=== PATIENT | male | born 1940 | race Caucasian/White ===

== ENCOUNTER 2017-11-11 09:02 | Inpatient (IN) | payer OTHER ==
[~2017-11-11] VITALS: Ht 188 cm; Wt 88.9 kg
--- NOTE | ~2017-11-11 | EKG ---
[place] [address] [address] [facility] [address] [place] [address] ELECTROCARDIOGRAM REPORT Name: CAROL GONZALEZ Room #: [facility]#: [id number] Admission: 11/11/17 Attend Phys: Discharge: Date of : 36 Report #: [id number] THIS REPORT FOR: //name// [facility] ED Test Date: 2017-11-11 Test Time: 10:10:30 Pat Name: CAROL GONZALEZ Department: Room: Gender: M Foundry Technician: Judy CALLAHAN : 1940 Requested By: Lilia Phelps Order Number: [id number] MD: Abran Baron Measurements Intervals [place] Rate: 54 P: 152 [place]: 198 QRS: -18 QRSD: 93 T: 59 QT: 451 QTc: 428 Interpretive Statements Incomplete EKG Sinus or ectopic atrial rhythm Atrial premature complexes Nonspecific T abnormalities, lateral leads Compared to ECG 06/02/2014 17:19:16 T wave abnormality is now present Recommend repeat EKG with all of leads Electronically Signed On 11-11-2017 10:26:16 CDT by Abran Baron [email or web address] <ELECTRONICALLY SIGNED> By: Abran Baron MD, FACC 11/11/17 1026 1010 1010 Abran Baron MD, [facility] /EPI
[~2017-11-11 09:02] MED LIST: ANTIVERT25 MG PO; ARICEPT 5 MG TAB5 MG PO; ASPIR 8181 MG PO; ATIVAN0.5 MG PO; AVODART0.5 MG PO; CELEXA20 MG PO; CRESTOR40 MG PO; IRON325 MG PO; MIDODRINE HCL 55 M1 PO; PEPCID20 MG PO; PROTONIX40 M1; SEROQUEL 25 MG25 M1 PO; ULTRAM 50MG TAB50 MG PO
[2017-11-11 09:05] VITALS: BP 159/57
[2017-11-11 09:25] LABS: ABSOLUTE NEUTROPHILS 4.6 thou/uL (1.4-8.2); BASOPHILS 0.7 % (0.0-2.0); EOSINOPHILS 1.8 % (0.0-3.0); HEMATOCRIT 31.8 % (42.0-52.0); HEMOGLOBIN 10.7 gm/dL (14.0-18.0); LYMPHOCYTES 11.7 % (24.0-44.0); MCH 27.3 pg (26.0-34.0); MCHC 33.6 g/dL (28.0-37.0); MCV 81.1 fL (80.0-100.0); MONOCYTES 6.6 % (1.0-8.0); PLATELET COUNT 134 thou/uL (150-400); POLYS 79.2 % (36.0-66.0); RBC 3.92 mil/uL (4.50-6.00); WBC 5.8 thou/uL (4.0-11.0)
[2017-11-11 09:33] LABS: CALCIUM 9.4 mg/dL (8.5-10.1); POTASSIUM 3.2 mmol/L (3.5-5.1)
[2017-11-11 09:39] LABS: ALBUMIN 2.9 g/dL (3.4-5.0); DIRECT BILIRUBIN 0.2 mg/dL (<0.1-0.3); TOTAL BILIRUBIN 0.9 mg/dL (<0.1-1.0); TOTAL PROTEIN 6.7 g/dL (6.4-8.2)
[2017-11-11] MEDS ORDERED: LEXAPRO 10 MG T10 M1 PO (10:47)
[2017-11-11] MEDS ORDERED: FLORINEF ACETA0.1 MG PO (10:47)
[2017-11-11] MEDS ORDERED: TYLENOL325 MG PO (10:48)
[2017-11-11] MEDS ORDERED: VITAMIN B-1100 M1 PO (10:48)
[2017-11-11] MEDS ORDERED: SENNA8.6 MG PO (10:48)
[2017-11-11] MEDS ORDERED: VITAMIN D2000 UNIT PO (10:49)
[2017-11-11] MEDS ORDERED: VITAMIN B-12500 MCG PO (10:49)
[2017-11-11 10:50] VITALS: BP 168/71
[2017-11-11 11:27] VITALS: BP 168/71
[2017-11-11 12:06] VITALS: BP 157/69
[2017-11-11 15:06] VITALS: BP 149/75
[2017-11-11 20:20] VITALS: BP 119/51
[2017-11-12 05:53] VITALS: BP 129/50
[2017-11-12 06:28] LABS: HEMATOCRIT 32.6 % (42.0-52.0); HEMOGLOBIN 10.8 gm/dL (14.0-18.0); MCH 26.9 pg (26.0-34.0); MCHC 33.2 g/dL (28.0-37.0); MCV 81.2 fL (80.0-100.0); RBC 4.01 mil/uL (4.50-6.00); RDW 14.7 % (10.5-14.5); WBC 4.7 thou/uL (4.0-11.0)
[2017-11-12 06:38] LABS: CALCIUM 9.6 mg/dL (8.5-10.1); POTASSIUM 3.1 mmol/L (3.5-5.1)
[2017-11-12 08:00] VITALS: BP 140/66
[2017-11-12 16:00] VITALS: BP 99/54
[2017-11-12 19:48] VITALS: BP 119/51
[2017-11-13 04:13] VITALS: BP 142/61
[2017-11-13 08:00] VITALS: BP 124/63
[2017-11-13 16:06] VITALS: BP 98/53
[2017-11-13 20:00] VITALS: BP 93/51
[2017-11-13 20:04] VITALS: BP 116/61
[2017-11-14 04:04] VITALS: BP 137/66
[2017-11-14 05:27] LABS: ABSOLUTE NEUTROPHILS 3.4 thou/uL (1.4-8.2); BASOPHILS 0.8 % (0.0-2.0); EOSINOPHILS 3.9 % (0.0-3.0); HEMATOCRIT 31.6 % (42.0-52.0); HEMOGLOBIN 10.6 gm/dL (14.0-18.0); LYMPHOCYTES 23.7 % (24.0-44.0); MCHC 33.4 g/dL (28.0-37.0); MCV 80.8 fL (80.0-100.0); MONOCYTES 8.5 % (1.0-8.0); PLATELET COUNT 151 thou/uL (150-400); POLYS 63.1 % (36.0-66.0); RBC 3.92 mil/uL (4.50-6.00); RDW 14.8 % (10.5-14.5); WBC 5.3 thou/uL (4.0-11.0)
[2017-11-14 05:52] LABS: CALCIUM 9.1 mg/dL (8.5-10.1); CREATININE 1.1 mg/dL (0.7-1.3); POTASSIUM 3.1 mmol/L (3.5-5.1)
[2017-11-14 08:00] VITALS: BP 142/60
== END 2017-11-14 14:05 | DRG 312 ==
LOC: ER 09:02 → 4W 10:17 → EROBS 10:17 → 4W 11:32
PROVIDERS: Emergency Medicine; Family Medicine; Hospitalist
DX: I95.1 Orthostatic hypotension (principal); R60.9 Edema, unspecified; K21.9 Gastro-esophageal reflux disease without esophagitis; I48.91 Unspecified atrial fibrillation; F03.90 Unspecified dementia, unspecified severity, without behavioral disturbance, psychotic disturbance, mood disturbance, and anxiety; E87.6 Hypokalemia; D64.9 Anemia, unspecified; I10 Essential (primary) hypertension; T50.995A Adverse effect of other drugs, medicaments and biological substances, initial encounter; M62.84 Sarcopenia; Z79.899 Other long term (current) drug therapy; Z88.0 Allergy status to penicillin; Y92.89 Other specified places as the place of occurrence of the external cause; Z79.82 Long term (current) use of aspirin; Z88.2 Allergy status to sulfonamides; Z88.8 Allergy status to other drugs, medicaments and biological substances
CPT/HCPCS: 10045

== ENCOUNTER 2017-11-30 21:03 | Emergency (ER) | payer OTHER ==
[~2017-11-30] VITALS: Ht 188 cm; Wt 68.0 kg
[~2017-11-30 21:03] MED LIST changes: +FLORINEF ACETA0.1 MG PO; +LEXAPRO 10 MG T10 M1 PO; +SENNA8.6 MG PO; +TYLENOL325 MG PO; +VITAMIN B-1100 M1 PO; +VITAMIN B-12500 MCG PO; +VITAMIN D2000 UNIT PO
== END 2017-11-30 23:50 | disposition home or self-care (01) ==
LOC: ER 21:03
DX: S09.90XA Unspecified injury of head, initial encounter (principal); K21.9 Gastro-esophageal reflux disease without esophagitis; I10 Essential (primary) hypertension; I11.0 Hypertensive heart disease with heart failure; I50.9 Heart failure, unspecified; N40.0 Benign prostatic hyperplasia without lower urinary tract symptoms; F32.9 Major depressive disorder, single episode, unspecified; Z88.0 Allergy status to penicillin; Z88.2 Allergy status to sulfonamides; W07.XXXA Fall from chair, initial encounter; Y93.89 Activity, other specified; Y92.89 Other specified places as the place of occurrence of the external cause; Y99.8 Other external cause status

== ENCOUNTER 2018-01-24 14:23 | Inpatient (IN) | payer OTHER ==
[~2018-01-24] VITALS: Ht 188 cm; Wt 81.7 kg
--- NOTE | ~2018-01-24 | EKG ---
[place] [address] [place] [address] ELECTROCARDIOGRAM REPORT Name: CAROL GONZALEZ Room #: 421-P ADM IN M.R.#: [id number] Admission: 01/24/18 Attend Phys: Michoacano Hernandez Discharge: Date of : 36 Report #: [id number] THIS REPORT FOR: //name// [facility] ED Test Date: 2018-01-24 Test Time: 14:28:02 Pat Name: CAROL GONZALEZ Department: Room: [facility] Gender: M Full Service Supervisor: KAIA : 1940 Requested By: Lilia Phelps Order Number: [id number] MD: Abran Baron Measurements Intervals [place] Rate: 53 P: 49 [place]: 151 QRS: -2 QRSD: 94 T: 41 QT: 457 QTc: 430 Interpretive Statements Sinus bradycardia Atrial premature complex Compared to ECG 11/11/2017 10:10:30 Prior ECG was incomplete. No obvious differences on leads that are present Electronically Signed On 01-25-2018 8:26:49 CDT by Abran Baron [email or web address] <ELECTRONICALLY SIGNED> By: Abran Barno MD, [facility] 01/25/18 0826 1428 1428 Abran Baron MD, [facility] /EPI
[2018-01-24 14:45] LABS: ABSOLUTE NEUTROPHILS 7.1 thou/uL (1.4-8.2); BASOPHILS 0.5 % (0.0-2.0); EOSINOPHILS 0.1 % (0.0-3.0); HEMATOCRIT 36.8 % (42.0-52.0); HEMOGLOBIN 12.1 gm/dL (14.0-18.0); LYMPHOCYTES 9.4 % (24.0-44.0); MCH 27.3 pg (26.0-34.0); MCV 82.7 fL (80.0-100.0); MONOCYTES 6.4 % (1.0-8.0); PLATELET COUNT 177 thou/uL (150-400); POLYS 83.6 % (36.0-66.0); RBC 4.44 mil/uL (4.50-6.00); RDW 17.7 % (10.5-14.5); WBC 8.5 thou/uL (4.0-11.0)
[2018-01-24 15:02] LABS: URINE BILIRUBIN NEGATIVE (Negative); URINE BLOOD NEGATIVE (Negative); URINE CLARITY CLEAR; URINE COLOR YELLOW; URINE GLUCOSE-RANDOM* NEGATIVE (Negative); URINE KETONES NEGATIVE (Negative); URINE LEUKOCYTES NEGATIVE (Negative); URINE NITRITE NEGATIVE (Negative); URINE PROTEIN (DIPSTICK) NEGATIVE (Negative); URINE UROBILINOGEN 0.2 E.U./dl (0.2-1.0)
[2018-01-24 15:46] LABS: CALCIUM 9.6 mg/dL (8.5-10.1); CREATININE 2.1 mg/dL (0.7-1.3); POTASSIUM 4.5 mmol/L (3.5-5.1)
[2018-01-24 16:27] VITALS: BP 125/47
[2018-01-24 17:26] VITALS: BP 123/79
[2018-01-24 17:50] VITALS: BP 106/65
[2018-01-24 20:00] VITALS: BP 119/58
[2018-01-25 00:30] VITALS: BP 139/93
[2018-01-25 04:12] VITALS: BP 138/57
[2018-01-25 07:14] LABS: CALCIUM 8.9 mg/dL (8.5-10.1); CREATININE 2.2 mg/dL (0.7-1.3); POTASSIUM 4.2 mmol/L (3.5-5.1)
[2018-01-25 16:10] VITALS: BP 151/65
[2018-01-25 19:41] VITALS: BP 124/55
[2018-01-26 04:02] LABS: ALBUMIN 2.4 g/dL (3.4-5.0); CALCIUM 8.4 mg/dL (8.5-10.1); PHOSPHORUS 3.4 mg/dL (2.5-4.9); POTASSIUM 3.9 mmol/L (3.5-5.1)
[2018-01-26 04:09] LABS: CREATININE 0.9 mg/dL (0.7-1.3)
[2018-01-26 04:52] VITALS: BP 140/49
[2018-01-26 07:20] VITALS: BP 154/65
== END 2018-01-26 13:14 | DRG 70 ==
LOC: ER 14:23 → EROBS 16:03 → 4E 16:03
PROVIDERS: Emergency Medicine; Hospitalist
DX: G93.41 Metabolic encephalopathy (principal); N17.0 Acute kidney failure with tubular necrosis; G47.00 Insomnia, unspecified; F03.90 Unspecified dementia, unspecified severity, without behavioral disturbance, psychotic disturbance, mood disturbance, and anxiety; I48.91 Unspecified atrial fibrillation; K21.9 Gastro-esophageal reflux disease without esophagitis; I11.0 Hypertensive heart disease with heart failure; I50.9 Heart failure, unspecified; F32.9 Major depressive disorder, single episode, unspecified; N40.0 Benign prostatic hyperplasia without lower urinary tract symptoms; I95.1 Orthostatic hypotension; Z87.81 Personal history of (healed) traumatic fracture; Z87.828 Personal history of other (healed) physical injury and trauma; Z88.0 Allergy status to penicillin; Z88.2 Allergy status to sulfonamides; Z88.8 Allergy status to other drugs, medicaments and biological substances; Z79.82 Long term (current) use of aspirin; Z79.899 Other long term (current) drug therapy
CPT/HCPCS: 10183

== ENCOUNTER 2018-02-04 16:35 | Inpatient (IN) | payer OTHER ==
[~2018-02-04] VITALS: Ht 185.4 cm; Wt 74.8 kg
--- NOTE | ~2018-02-04 | HC ---
[facility] [place] [address] CONSULTATION Name: CAROL GONZALEZ Room #: 353-P ADM IN M.R.#: [id number] Admission: 02/04/18 Attend Phys: Aldo Sharif MD Discharge: Date of : 36 Report #: [id number] THIS REPORT FOR: //name// CC: Aldo Dumont DATE OF SERVICE: 02/05/2018 REASON FOR CONSULTATION: Acute kidney injury. REASON FOR PRESENTATION: Altered mental status. HISTORY OF PRESENT ILLNESS: The patient is not able to provide me with the history. He presented yesterday. He is nonverbal and noncommunicative. He is able to ambulate with a walker in his nursing facility. For the past 3 days, he had been in bed, nonverbal and not following commands. He carries a diagnosis of dementia. He was in the hospital in early part of January. When he presented yesterday, he was found to have hypernatremia with an acute kidney injury and a creatinine of 7.3. Urology had evaluated the patient because of urinary retention and a Roman catheter was placed accordingly. His creatinine was 7.3 yesterday and the creatinine is down to 4.2. I am being consulted to manage his acute kidney injury and hypernatremia. REVIEW OF SYSTEMS: Unobtainable given the patient's mental status. PAST MEDICAL HISTORY: 1. Obtained from the medical chart as the patient is nonverbal. 2. Dementia. 3. Hypertension. 4. Anemia. SOCIAL HISTORY: He lives in a nursing facility. No reported drug or alcohol abuse. MEDICATIONS: 1. Midodrine. 2. Aspirin. 3. Pantoprazole. 4. Florinef. 5. Thiamine. ALLERGIES: LISTED PENICILLIN AND SULFA. PHYSICAL EXAMINATION: GENERAL: He is disoriented to place and person. VITAL SIGNS: Temperature 36.9, pulse 73, blood pressure 129/80. [facility] [address] [place] [address] CONSULTATION Name: CAROL GONZALEZ Room #: 353-P [facility] IN .R.#: [id number] Admission: 02/04/18 Attend Phys: Aldo Sharif MD Discharge: Date of : 38 Report #: [id number] HEENT: Mucous membrane is extremely dry. HEAD AND NECK: No jugular venous distention, no bruit, no thyromegaly. CHEST: Clear to auscultation bilaterally. CARDIOVASCULAR: Regular with no rub detected. ABDOMEN: Soft, nontender with no hepatosplenomegaly. EXTREMITIES: Lower extremities, no edema. LABORATORY DATA: Laboratory values reviewed. White blood cell count 10.2, hemoglobin 11.1, platelet 117. Chemistry revealed sodium of 155, BUN of 88, creatinine of 4.2. Magnesium was elevated at 2.7. Head CT was negative for any acute abnormality. Ultrasound was negative for hydronephrosis. ASSESSMENT, IMPRESSION, PLAN: 1. Acute kidney injury. 2. Urinary retention. 3. Hypernatremia. 4. Dementia. 5. This is typical hypernatremia due to lack of access to free water. 6. We will discontinue current IV fluid and switch to p.o. D5W. 7. Continue with the Roman catheter. 8. Continue to monitor his renal function. I expect his renal function to continue to improve back to his baseline. By: [id number] Wayne Aguilar MD /nt
--- NOTE | ~2018-02-04 | HC ---
[facility] [place] [address] CONSULTATION Name: CAROL GONZALEZ Room #: 353-P ADM IN M.R.#: [id number] Admission: 02/04/18 Attend Phys: Aldo Sharif MD Discharge: Date of : 38 Report #: [id number] THIS REPORT FOR: //name// CC: Aldo Dumont CHIEF COMPLAINT: Urinary retention. HISTORY OF PRESENT ILLNESS: The patient is a 77-year-old gentleman who is being seen today at the request of Dr. Sharif for evaluation and management of urinary retention. Specifically, he was transferred from halfway facility with altered mental status. He was known to have an elevated creatinine. When a catheter was placed, 2500 mL of urine was obtained in the Emergency Room. ALLERGIES: PENICILLIN, SULFA, FLOMAX. MEDICATIONS: ProAmatine, Protonix, aspirin, Pepcid, Florinef, Lexapro, senna, Tylenol, vitamin B1, Vitamin B12, vitamin D3. ILLNESSES: Include dementia, ischemic heart disease, atrial fibrillation, psychosis, GERD, hypertension, congestive heart failure, syncope, dysphagia, depression, BPH. REVIEW OF SYSTEMS: Limited due to his condition. PHYSICAL EXAMINATION: GENERAL: He really does not respond to questions and almost appears catatonic. VITAL SIGNS: Temperature is 36.9, pulse 73, respirations 18, blood pressure 129/80. ABDOMEN: Soft without masses. GENITOURINARY: There is no acute genital pathology. He has a Roman, draining clear urine. LABORATORY DATA: White count 10.2 thousand, hemoglobin 11.1, hematocrit 34.0, platelets 117,000. Sodium 155, potassium 3.8, chloride 119, CO2 of 26, BUN 88, creatinine 4.2, was 7.3 on admission. Urine is clear, yellow, specific gravity is 1.015, pH 6.0, blood, ketones, nitrites, bilirubin all negative, leukocyte esterase negative. IMPRESSION: Urinary retention, very profound. [facility] [address] [place] [address] CONSULTATION Name: ELIF GONZALEZMIE Room #: 353-P ADM IN M.R.#: [id number] Admission: 02/04/18 Attend Phys: Aldo Sharif MD Discharge: Date of : 38 Report #: [id number] PLAN: I would leave the Roman in 3-4 weeks given the degree of distention and we will check a renal ultrasound and assist with management. <ELECTRONICALLY SIGNED> By: Vincent Jeffery MD 02/06/18 1028 0746 0008 Vincent Jeffery MD /nt
[2018-02-04 16:36] VITALS: BP 117/74
[2018-02-04 17:19] LABS: URINE BILIRUBIN NEGATIVE (Negative); URINE BLOOD NEGATIVE (Negative); URINE CLARITY CLEAR; URINE COLOR YELLOW; URINE GLUCOSE-RANDOM* NEGATIVE (Negative); URINE KETONES NEGATIVE (Negative); URINE LEUKOCYTES-REFLEX NEGATIVE (Negative); URINE NITRITE-REFLEX NEGATIVE (Negative); URINE PROTEIN (DIPSTICK) NEGATIVE (Negative); URINE SPECIFIC GRAVITY 1.015 (1.005-1.035); URINE UROBILINOGEN 0.2 E.U./dl (0.2-1.0)
[2018-02-04 17:19] LABS: ABSOLUTE NEUTROPHILS 9.9 thou/uL (1.4-8.2); BASOPHILS 0.4 % (0.0-2.0); HEMATOCRIT 34.1 % (42.0-52.0); HEMOGLOBIN 11.1 gm/dL (14.0-18.0); LYMPHOCYTES 7.5 % (24.0-44.0); MCH 26.9 pg (26.0-34.0); MCHC 32.5 g/dL (28.0-37.0); MCV 82.9 fL (80.0-100.0); MONOCYTES 6.8 % (1.0-8.0); PLATELET COUNT 128 thou/uL (150-400); POLYS 85.3 % (36.0-66.0); RBC 4.11 mil/uL (4.50-6.00); RDW 16.9 % (10.5-14.5); WBC 11.7 thou/uL (4.0-11.0)
[2018-02-04 17:31] LABS: CALCIUM 9.2 mg/dL (8.5-10.1); CREATININE 7.3 mg/dL (0.7-1.3); POTASSIUM 4.5 mmol/L (3.5-5.1)
[2018-02-04 18:29] VITALS: BP 133/59
[2018-02-04 19:30] VITALS: BP 139/66
[2018-02-04 19:53] VITALS: BP 147/74
[2018-02-05 00:37] VITALS: BP 125/71
[2018-02-05 04:29] VITALS: BP 117/59
[2018-02-05 04:40] LABS: ABSOLUTE NEUTROPHILS 8.5 thou/uL (1.4-8.2); BASOPHILS 0.4 % (0.0-2.0); EOSINOPHILS 0.1 % (0.0-3.0); HEMOGLOBIN 11.1 gm/dL (14.0-18.0); LYMPHOCYTES 8.5 % (24.0-44.0); MCHC 32.5 g/dL (28.0-37.0); MCV 82.9 fL (80.0-100.0); PLATELET COUNT 117 thou/uL (150-400); RDW 16.9 % (10.5-14.5); WBC 10.2 thou/uL (4.0-11.0)
[2018-02-05 05:07] LABS: ALBUMIN 2.5 g/dL (3.4-5.0); CALCIUM 9.1 mg/dL (8.5-10.1); MAGNESIUM 2.7 mg/dL (1.8-2.4); POTASSIUM 3.8 mmol/L (3.5-5.1); TOTAL BILIRUBIN 0.6 mg/dL (<0.1-1.0); TOTAL PROTEIN 6.6 g/dL (6.4-8.2)
[2018-02-05 05:19] LABS: CREATININE 4.2 mg/dL (0.7-1.3)
[2018-02-05 07:34] VITALS: BP 129/80
[2018-02-05 11:34] VITALS: BP 121/70
[2018-02-05 15:28] VITALS: BP 141/64
[2018-02-05 19:10] VITALS: BP 115/58
[2018-02-06 03:50] VITALS: BP 107/65
[2018-02-06 07:27] LABS: ALBUMIN 2.3 g/dL (3.4-5.0); CALCIUM 9.2 mg/dL (8.5-10.1); PHOSPHORUS 2.7 mg/dL (2.5-4.9); POTASSIUM 3.5 mmol/L (3.5-5.1)
[2018-02-06 07:46] LABS: CREATININE 1.9 mg/dL (0.7-1.3)
[2018-02-06 08:13] VITALS: BP 129/71
[2018-02-06 13:04] VITALS: BP 132/82
[2018-02-06 17:28] VITALS: BP 131/87
[2018-02-06 19:25] VITALS: BP 125/55
[2018-02-07 04:30] VITALS: BP 110/61
[2018-02-07 08:38] VITALS: BP 122/68
[2018-02-07 08:48] LABS: HEMATOCRIT 30.1 % (42.0-52.0); HEMOGLOBIN 9.9 gm/dL (14.0-18.0); MCH 27.2 pg (26.0-34.0); MCHC 33.1 g/dL (28.0-37.0); MCV 82.4 fL (80.0-100.0); RBC 3.65 mil/uL (4.50-6.00); RDW 16.2 % (10.5-14.5); WBC 7.7 thou/uL (4.0-11.0)
[2018-02-07 09:02] LABS: ALBUMIN 2.1 g/dL (3.4-5.0); CALCIUM 8.5 mg/dL (8.5-10.1); CREATININE 1.2 mg/dL (0.7-1.3); PHOSPHORUS 2.6 mg/dL (2.5-4.9); POTASSIUM 3.2 mmol/L (3.5-5.1)
[2018-02-07 12:07] VITALS: BP 108/65
== END 2018-02-07 16:33 | DRG 682 ==
LOC: ER 16:35 → EROBS 18:12 → 3W 18:12
PROVIDERS: Emergency Medicine; Hospitalist; Nurse Practitioner
DX: N17.9 Acute kidney failure, unspecified (principal); G93.40 Encephalopathy, unspecified; E43 Unspecified severe protein-calorie malnutrition; E87.0 Hyperosmolality and hypernatremia; E46 Unspecified protein-calorie malnutrition; F03.90 Unspecified dementia, unspecified severity, without behavioral disturbance, psychotic disturbance, mood disturbance, and anxiety; I48.91 Unspecified atrial fibrillation; K21.9 Gastro-esophageal reflux disease without esophagitis; I50.9 Heart failure, unspecified; D69.6 Thrombocytopenia, unspecified; F41.9 Anxiety disorder, unspecified; E83.41 Hypermagnesemia; I95.1 Orthostatic hypotension; N40.1 Benign prostatic hyperplasia with lower urinary tract symptoms; E87.6 Hypokalemia; R33.8 Other retention of urine; I11.0 Hypertensive heart disease with heart failure; F32.9 Major depressive disorder, single episode, unspecified; H91.90 Unspecified hearing loss, unspecified ear; Z87.81 Personal history of (healed) traumatic fracture; Z68.21 Body mass index [BMI] 21.0-21.9, adult; Z79.82 Long term (current) use of aspirin; Z79.899 Other long term (current) drug therapy; Z88.0 Allergy status to penicillin; Z88.2 Allergy status to sulfonamides; Z88.8 Allergy status to other drugs, medicaments and biological substances
CPT/HCPCS: 10879

== ENCOUNTER 2018-05-30 02:20 | Inpatient (IN) | payer OTHER ==
[~2018-05-30] VITALS: Ht 175.3 cm; Wt 45.9 kg
--- NOTE | ~2018-05-30 | EKG ---
[address] [employer] [place] [address] ELECTROCARDIOGRAM REPORT Name: CAROL GONZALEZ Room #: 352-P ADM IN M.R.#: [id number] Admission: 05/30/18 Attend Phys: Comfort Ying Discharge: Date of : 38 Report #: [id number] THIS REPORT FOR: //name// [facility] ED Test Date: 2018-05-30 Test Time: 02:34:38 Pat Name: CAROL GONZALEZ Department: Room: [facility] Gender: M Rn Endoscopy: vasile : 1940 Requested By: Brennan Comer Order Number: [id number] MD: Abran Baron Measurements Intervals [place] Rate: 92 P: 42 [place]: 100 QRS: 39 QRSD: 87 T: 90 QT: 366 QTc: 453 Interpretive Statements Sinus rhythm Short [place] interval Abnormal R-wave progression, early transition Nonspecific T abnormalities, lateral leads Compared to ECG 02/16/2018 17:12:49 T-wave abnormality now present Electronically Signed On 05-30-2018 8:03:35 OCC THERAPIST by Abran Baron [email or web address] <ELECTRONICALLY SIGNED> By: Abran Baron MD, [facility] 05/30/18 [phone] 0234 Abran Baron MD, [facility] /EPI
--- NOTE | ~2018-05-30 | HC ---
[facility] [place] [address] CONSULTATION Name: CAROL GONZALEZ Room #: 357-P [facility] IN M.R.#: [id number] Admission: 05/30/18 Attend Phys: Comfort Ying Discharge: 06/02/18 Date of : 38 Report #: [id number] THIS REPORT FOR: //name// CC: Kailash Nieto DATE OF SERVICE: 05/30/2018 CHIEF COMPLAINT: Multiple pressure ulcerations. HISTORY OF PRESENT ILLNESS: This is a 77-year-old white male patient who I have been asked to see with regard to wound care issues. The patient has a history of ischemic heart disease and atrial fibrillation, psychosis, and dementia. He is from a retirement. He is not able to provide any information about himself. He has apparently stopped eating and drinking about a week ago. He has not been able to answer any questions. There is a report that he was to be in hospice, but this was apparently canceled prior to his arrival here. There is no additional information about him other than his current medical record. ALLERGIES: PENICILLIN, SULFA, and TAMSULOSIN. MEDICATIONS: Include ProAmatine, aspirin, Pepcid, vitamin C, Centrum Silver, Pro-Stat Liquid, Tylenol, vitamin B1, vitamin B3. PAST MEDICAL HISTORY: Positive for urinary tract infection, acute kidney injury, hypernatremia, dementia, ischemic heart disease, orthostatic hypotension, atrial fibrillation, psychosis, hypertension, anemia, congestive heart failure, syncope, dysphagia, depression, benign prostatic hypertrophy, multiple falls, gastroesophageal reflux disease, Alzheimer's dementia, and hyperlipidemia. FAMILY HISTORY: Unknown. SOCIAL HISTORY: Unknown other than that mentioned above. REVIEW OF SYSTEMS: A 14-point review of systems is unobtainable due to the patient's level of consciousness. PHYSICAL EXAMINATION: VITAL SIGNS: At this time include pulse rate 92, respiratory rate of 16, blood pressure 87/55, temperature 99.7. GENERAL: This is a cachectic, chronically ill male patient who appears mostly somnolent, in no obvious distress. HEENT: Examination of the head normocephalic. NECK: Supple. LUNGS: Diminished. [facility] [address] [place] [address] CONSULTATION Name: CAROL GONZALEZ Room #: 357-P [facility] IN M.R.#: [id number] Admission: 05/30/18 Attend Phys: Comfort Ying Discharge: 06/02/18 Date of : 36 Report #: [id number] HEART: Irregular. EXTREMITIES: There is a deep tissue injury to the left anterior chest wall. He has significant contractures of his hips. ABDOMEN: Soft and nontender. He has significant flexion contractures of his hips and knees. He has multiple deep tissue injuries to lower extremities including his left medial malleolus, left first MTP region, right lateral malleolus. 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 It is relatively clean. There is undermining all the way around. CLINICAL IMPRESSION: 1. Deep tissue injury to the left anterior chest wall, left medial malleolus, right lateral malleolus, and left first MTP. 2. Cachexia. 3. Flexion contractures, bilateral hips and knees. 4. 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 5. Severe protein-calorie malnutrition. RECOMMENDATIONS: At this point in time, he should use in the low air loss mattress. He will need PRAFO boots for pressure prophylaxis. He will need aggressive turning and repositioning every 2 hours. Recommend Dakin's moist gauze to the sacral region. He will need aggressive nutritional support. It is unlikely that we would expect a meaningful healing in his sacral region and the other areas of deep tissue injury are certainly at high risk for further observation and breakdown. I think it would be reasonable to consider hospice evaluation. I appreciate being asked to see him in consultation. <ELECTRONICALLY SIGNED> By: Zeke Looney MD 06/03/18 0754 0004 0205 Zeke Looney MD /nt
--- NOTE | ~2018-05-30 | EKG ---
[address] [address] ELECTROCARDIOGRAM REPORT Name: CAROL GONZALZE Room #: 357-P ADM IN M.R.#: [id number] Admission: 05/30/18 Attend Phys: Comfort Ying Discharge: Date of : 36 Report #: [id number] THIS REPORT FOR: //name// [facility] Test Date: 2018-05-31 Test Time: 10:43:21 Pat Name: CAROL GONZALEZ Department: Room: 357 P Gender: M [employer] Consultant: Georgia LOOMIS : 1940 Requested By: Adriana Cheung Order Number: [id number] MD: Ac Vo Measurements Intervals [place] Rate: 93 P: [place]: QRS: 59 QRSD: 87 T: 87 QT: 375 QTc: 467 Interpretive Statements Atrial fibrillation Motion artifact as well. Low voltage, precordial leads Borderline repolarization abnormality Compared to ECG 05/30/2018 02:34:38 Electronically Signed On 05-31-2018 13:24:03 SIDER MECHANIC by Ac Vo [email or web address] <ELECTRONICALLY SIGNED> By: Ac Vo MD 05/31/18 1324 1043 1043 Ac Vo MD /EPI
--- NOTE | ~2018-05-30 | EKG ---
[address] [address] ELECTROCARDIOGRAM REPORT Name: INDRACAROL WOODARD Room #: 357- DIS IN M.R.#: [id number] Admission: 05/30/18 Attend Phys: Comfort Ying Discharge: 06/02/18 Date of : 36 Report #: [id number] THIS REPORT FOR: //name// [facility] Test Date: 2018-06-02 Test Time: 08:49:09 Pat Name: CAROL GONZALEZ Department: Room: 357 Gender: M Sea Captain: CHELE : 1940 Requested By: Saurabh Woodruff Order Number: [id number] MD: Ac Vo Measurements Intervals [place] Rate: 79 P: 100 [place]: 121 QRS: 46 QRSD: 121 T: 91 QT: 429 QTc: 492 Interpretive Statements Atrial fibrillation Motion artifact Compared to ECG 05/31/2018 10:43:21 Electronically Signed On 06-02-2018 20:42:19 QUILT SEWER by Ac Vo [email or web address] <ELECTRONICALLY SIGNED> By: Ac Vo MD 06/02/182041 0849 Ac Vo MD /MEGAN
[~2018-05-30 02:20] MED LIST changes: +KEFLEX250 MG PO
[2018-05-30 02:21] VITALS: BP 87/55
[2018-05-30] MEDS ORDERED: VITAMINC500 PO (02:29)
[2018-05-30] MEDS ORDERED: PRO-STAT LIQUID30 M1 PO (02:30)
[2018-05-30] MEDS ORDERED: CENTRUM SILVER1 EAC2 PO (02:30)
[2018-05-30 03:08] LABS: ABSOLUTE NEUTROPHILS 13.6 thou/uL (1.4-8.2); BASOPHILS 0.2 % (0.0-2.0); HEMATOCRIT 34.8 % (42.0-52.0); HEMOGLOBIN 10.4 gm/dL (14.0-18.0); LYMPHOCYTES 5.9 % (24.0-44.0); MCH 25.5 pg (26.0-34.0); MCHC 29.8 g/dL (28.0-37.0); MCV 85.5 fL (80.0-100.0); MONOCYTES 6.3 % (1.0-8.0); PLATELET COUNT 257 thou/uL (150-400); POLYS 87.6 % (36.0-66.0); RBC 4.07 mil/uL (4.50-6.00); RDW 18.7 % (10.5-14.5); WBC 15.5 thou/uL (4.0-11.0)
[2018-05-30 03:10] LABS: BUN 87 mg/dL (7-18); CALCIUM 10.1 mg/dL (8.5-10.1); CO2 24 mmol/L (21-32); CREATININE 2.8 mg/dL (0.7-1.3); GLUCOSE 128 mg/dL (74-106); POTASSIUM 4.6 mmol/L (3.5-5.1)
[2018-05-30 03:15] LABS: ANION GAP 12 mmol/L (7-16); CHLORIDE 125 mmol/L (98-107)
[2018-05-30 03:17] LABS: SODIUM 161 mmol/L (136-145)
[2018-05-30 03:18] LABS: LIPASE 53 U/L (73-393); SGOT 24 U/L (15-37); SGPT 12 U/L (30-65); TOTAL BILIRUBIN 0.9 mg/dL (<0.1-1.0); TROPONIN-I <0.06 ng/mL (<0.06)
[2018-05-30 04:00] VITALS: BP 110/65
[2018-05-30 04:20] VITALS: BP 122/71
[2018-05-30 04:59] LABS: ANISOCYTOSIS 2+
[2018-05-30 07:28] VITALS: BP 78/34
[2018-05-30 09:57] LABS: HEMATOCRIT 27.8 % (42.0-52.0); MCH 26.8 pg (26.0-34.0); MCHC 30.3 g/dL (28.0-37.0); MCV 88.5 fL (80.0-100.0); RBC 3.14 mil/uL (4.50-6.00); RDW 19.1 % (10.5-14.5); WBC 12.3 thou/uL (4.0-11.0)
[2018-05-30 10:00] LABS: CREATININE 2.8 mg/dL (0.7-1.3); POTASSIUM 4.2 mmol/L (3.5-5.1)
[2018-05-30 10:04] LABS: HEMOGLOBIN 8.4 gm/dL (14.0-18.0)
[2018-05-30 15:56] VITALS: BP 77/39
[2018-05-30 19:45] VITALS: BP 79/37
[2018-05-31 04:50] VITALS: BP 80/43
[2018-05-31 07:14] VITALS: BP 93/49
[2018-05-31 09:54] LABS: HEMATOCRIT 27.1 % (42.0-52.0); HEMOGLOBIN 8.4 gm/dL (14.0-18.0); MCH 26.5 pg (26.0-34.0); MCHC 30.9 g/dL (28.0-37.0); RBC 3.16 mil/uL (4.50-6.00); RDW 18.6 % (10.5-14.5); WBC 13.2 thou/uL (4.0-11.0)
[2018-05-31 10:01] LABS: CALCIUM 9.3 mg/dL (8.5-10.1); POTASSIUM 3.9 mmol/L (3.5-5.1)
[2018-05-31 10:07] LABS: CREATININE 1.8 mg/dL (0.7-1.3)
[2018-05-31 11:26] VITALS: BP 84/38
[2018-05-31 16:00] VITALS: BP 90/58
[2018-05-31 16:47] VITALS: BP 86/40
[2018-05-31 19:29] VITALS: BP 83/42
[2018-06-01] VITALS (10 sets, daily range): BP systolic 58–204; BP diastolic 36–137
[2018-06-01 06:32] LABS: HEMATOCRIT 30.6 % (42.0-52.0); HEMOGLOBIN 9.3 gm/dL (14.0-18.0); MCH 26.2 pg (26.0-34.0); MCHC 30.5 g/dL (28.0-37.0); RBC 3.55 mil/uL (4.50-6.00); RDW 18.7 % (10.5-14.5); WBC 10.7 thou/uL (4.0-11.0)
[2018-06-01 06:47] LABS: CALCIUM 9.7 mg/dL (8.5-10.1); POTASSIUM 3.2 mmol/L (3.5-5.1)
[2018-06-01 17:26] LABS: URINE BLOOD 3+ (Negative); URINE CLARITY CLEAR; URINE COLOR YELLOW; URINE GLUCOSE-RANDOM* NEGATIVE (Negative); URINE KETONES NEGATIVE (Negative); URINE LEUKOCYTES-REFLEX 2+ (Negative); URINE NITRITE-REFLEX NEGATIVE (Negative); URINE PROTEIN (DIPSTICK) 1+ (Negative); URINE SPECIFIC GRAVITY >= 1.030 (1.005-1.035)
[2018-06-01 17:27] LABS: ICTOTEST (BILI CONFIRMATORY) Negative (Negative); URINE BILIRUBIN NEGATIVE (Negative)
[2018-06-01 17:35] LABS: SQUAMOUS 0-3 Few /LPF (0-3)
[2018-06-01 17:36] LABS: AMORPHOUS URATES Moderate /LPF (None Seen); BACTERIA-REFLEX None Seen /HPF (None Seen); CALCIUM OXALATE 0-3 Few /LPF (None Seen); HYALINE CASTS 4-10 Moderate /LPF (None Seen); URINE WBC-REFLEX >25 Many /HPF (0-5)
[2018-06-02 02:44] VITALS: BP 136/100
[2018-06-02 03:34] LABS: HEMATOCRIT 32.7 % (42.0-52.0); HEMOGLOBIN 9.5 gm/dL (14.0-18.0); MCH 25.1 pg (26.0-34.0); MCHC 29.2 g/dL (28.0-37.0); MCV 86.2 fL (80.0-100.0); RBC 3.8 mil/uL (4.50-6.00); RDW 19.1 % (10.5-14.5)
[2018-06-02 03:36] LABS: CALCIUM 10.2 mg/dL (8.5-10.1); CREATININE 2.4 mg/dL (0.7-1.3); MAGNESIUM 2.4 mg/dL (1.8-2.4); POTASSIUM 3.1 mmol/L (3.5-5.1)
[2018-06-02 08:19] VITALS: BP 63/37
[2018-06-02 10:12] VITALS: BP 75/53
[2018-06-02 11:18] VITALS: BP 52/25
[2018-06-02 12:15] VITALS: BP 73/33
[2018-06-02 14:41] LABS: BE(vivo) -19.9 mmol/L (-2 to +3); HCO3 12.3 mmol/L (22.0-26.0); PCO2 VENOUS 68.8 mmHg (41.0-51.0); PO2 VENOUS 45.2 mmHg (35.0-45.0)
== END 2018-06-02 16:48 | DRG 871 ==
LOC: ER 02:20 → EROBS 03:32 → 3W 03:32
PROVIDERS: Emergency Medicine; Family Medicine; Internal Medicine; Nurse Practitioner Family
DX: A41.9 Sepsis, unspecified organism (principal); L89.154 Pressure ulcer of sacral region, stage 4; G93.41 Metabolic encephalopathy; E43 Unspecified severe protein-calorie malnutrition; J96.01 Acute respiratory failure with hypoxia; N17.9 Acute kidney failure, unspecified; E87.0 Hyperosmolality and hypernatremia; Z68.1 Body mass index [BMI] 19.9 or less, adult; N39.0 Urinary tract infection, site not specified; G30.9 Alzheimer's disease, unspecified; I46.9 Cardiac arrest, cause unspecified; F02.80 Dementia in other diseases classified elsewhere, unspecified severity, without behavioral disturbance, psychotic disturbance, mood disturbance, and anxiety; I48.91 Unspecified atrial fibrillation; K21.9 Gastro-esophageal reflux disease without esophagitis; I11.0 Hypertensive heart disease with heart failure; I50.9 Heart failure, unspecified; F32.9 Major depressive disorder, single episode, unspecified; N40.0 Benign prostatic hyperplasia without lower urinary tract symptoms; H91.90 Unspecified hearing loss, unspecified ear; M24.552 Contracture, left hip; M24.551 Contracture, right hip; M24.562 Contracture, left knee; M24.561 Contracture, right knee; I95.1 Orthostatic hypotension; F41.1 Generalized anxiety disorder; L89.529 Pressure ulcer of left ankle, unspecified stage; E87.6 Hypokalemia; L89.519 Pressure ulcer of right ankle, unspecified stage; L89.899 Pressure ulcer of other site, unspecified stage; E86.0 Dehydration; D64.9 Anemia, unspecified; E55.9 Vitamin D deficiency, unspecified; E78.5 Hyperlipidemia, unspecified; Z87.81 Personal history of (healed) traumatic fracture; Z91.81 History of falling; Z79.82 Long term (current) use of aspirin; Z79.899 Other long term (current) drug therapy; Z88.0 Allergy status to penicillin; Z88.2 Allergy status to sulfonamides; Z88.8 Allergy status to other drugs, medicaments and biological substances
CPT/HCPCS: 10879